=== PATIENT | male | born 2000 | race Caucasian/White ===

== ENCOUNTER 2022-01-28 20:01 | Emergency (ER) | payer OTHER ==
[2022-01-28] MEDS ORDERED: Dexamethasone 10 MG/ML SDV IM STA (20:31)
== END 2022-01-28 20:43 | disposition home or self-care (01) ==
LOC: MW.ED 20:01
DX: L50.9 Urticaria, unspecified (principal)
CPT/HCPCS: 96372; 99283; J1100

== ENCOUNTER 2022-02-09 05:38 | Emergency (ER) | payer OTHER ==
[2022-02-09] MEDS ORDERED: hydrOXYzine HCl 25 MG Tab PO ONE (05:55)
[2022-02-09] MEDS ORDERED: Cetirizine 10 MG Tab PO ONE (05:55)
[2022-02-09] MEDS ORDERED: predniSONE 20 MG Tab PO ONE (05:56)
== END 2022-02-09 06:59 | disposition home or self-care (01) ==
LOC: MW.ED 05:38
DX: L50.9 Urticaria, unspecified (principal); Z79.899 Other long term (current) drug therapy
CPT/HCPCS: 99282; A9270

== ENCOUNTER 2022-08-07 16:52 | Emergency (ER) | payer OTHER ==
[2022-08-07] MEDS ORDERED: traMADol 50 MG Tab PO STA (19:26)
== END 2022-08-07 19:55 | disposition home or self-care (01) ==
LOC: MW.ED 16:52
DX: S49.91XA Unspecified injury of right shoulder and upper arm, initial encounter (principal); X50.0XXA Overexertion from strenuous movement or load, initial encounter
CPT/HCPCS: 73030; 99283; A9270